=== PATIENT | female | born 1985 | race Asian ===

== ENCOUNTER 2017-04-02 10:20 | Inpatient (IN) | payer OTHER ==
[2017-04-02] MEDS: ELECTROLYTE-148 SOLN 1,000 ML IV SCH ×2 (10:50→14:30)
[2017-04-02] MEDS ORDERED: BUTORPHANOL TARTRATE 1 MG/ML VIAL IVPB ONE (10:55)
[2017-04-02] MEDS ORDERED: PROMETHAZINE HCL 25 MG/1 ML VIAL IVPUSH ONE (10:55)
[2017-04-02] MEDS ORDERED: CLINDAMYCIN 900 MG PREMIX IVPB 50 ML IVPB ONE (10:57)
[2017-04-02 11:20] LABS: BASOPHIL 0.1 % (0-2.0); EOSINOPHIL 0.2 % (0-4.5); MCH 28.7 pg (25.7-33.7); MCHC 33.4 g/dl (32.0-36.0); MEAN CELL VOLUME 85.8 fl (80-96); MEAN PLT VOLUME 9.9 fl (7.5-11.1); NEUTROPHILS 80.6 % (42.8-82.8); PLATELET COUNT 163 K/MM3 (134-434); RDW 14.7 % (11.6-15.6); WHITE BLOOD COUNT 11.3 K/mm3 (4.0-10.0)
--- NOTE | 2017-04-02 11:23 | HP ---
Past Medical History - Primary Care Physician PCP:: Cornelia Bower - Admission Chief Complaint: 31 yrs , 40.2 weeks, onset LP since 6.00AM History of Present Illness: PNC at [address] [place] [address]. 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 Weeks Gestation by Dates: 40.2 ...EDC by Dates: 03/31/17 ...EDC by Sono: 03/31/17 Heme/Onc: Yes: Anemia Infectious Disease: No: HIV, STD's Psych: No: Addictions, Anxiety, Depression Endocrine: Yes: Other (gdm diet controlled during last pregn) - Past Surgical History Past Surgical History: Yes: None Hx Myomectomy: No Hx Transabdominal Cerclage: No - Smoking History Smoking history: Never smoked - Alcohol/Substance Use Hx Alcohol Use: No History of Substance Use: reports: None - Social History ADL: Independent Home Medications - Allergies Allergies/Adverse Reactions: Allergies Allergy/AdvReac Type Severity Reaction Status Date / Time amoxicillin Allergy Severe Itching Verified 04/02/17 11:32 - Home Medications Home Medications: Ambulatory Orders Vitamins (Sjr) - 1 tab PO DAILY tablet 06/07/15 Physical Exam - Maternity Vital Signs: BP 145/84 , Pulse 105, Temp 98 Selected Entries 04/02/17 11:00 Temperature 98.0 F Pulse Rate 105 H Blood Pressure 145/84 Constitutional: Yes: Severe Distress, Obese (203 lbs) Eyes: Yes: WNL HENT: Yes: WNL, Normocephalic Neck: Yes: WNL Cardiovascular: Yes: WNL, Regular Rate and Rhythm Lungs: Clear to auscultation Breast(s): Yes: Other (not done) - Abdominal Exam/OB Fundal Height: 40 Number of Fetuses: Single Presentation: Vertex Contractions: Yes Regularity: Regular (3-4 min) Intensity: Mod/Strong Monitor Mode: External Heart Rate (range): 130-140 Heart Rate Location: [facility] Category: I Accelerations: Uniform Decelerations: None - Vaginal Exam/OB Vaginal Bleediing: Bloody Show Speculum Exam: No Dilatation (cm): 6 Effacement (%): 100 Amniotic Membrane Status: Intact Presentation: Vertex/Position (exam at 10.45 AM) Station: -1 - Physical Exam Musculoskeletal: Yes: WNL Extremities: Yes: WNL. No: Calf Tenderness Edema: Yes Integumentary: Yes: WNL Deep Tendon Reflex Grade: Normal +2 ...Motor Strength: WNL Psychiatric: Yes: WNL, Alert, Oriented - Labs Lab Results: Selected Entries 04/02/17 11:32 Weight 203 lb Laboratory Tests 04/02/17 11:10 WBC 11.3 H Hgb 12.3 D Hct 36.9 Plt Count 163 Neutrophils % 80.6 Lymphocytes % 13.7 D Laboratory Tests 04/02/17 04/02/17 11:10 11:10 INR 0.95 PTT (Actin FS) 30.1 Sodium 138 Potassium 4.1 Chloride 108 H Carbon Dioxide 23 BUN 6 L Creatinine 0.4 L D Random Glucose 69 L Calcium 8.4 L Problem List - Problems (1) Post term over 40 weeks Code(s): O48.0 - POST-TERM (2) Labor established Code(s): YQA9049 - (3) GBS (group B Streptococcus carrier), +RV culture, currently Code(s): O99.820 - STREPTOCOCCUS B [employer] COMPLICATING Assessment/Plan 31 yrs , post term pregn in labor gbs pos , allergic to Amoxcillin , rx IV Clindamycin 900 mg stadol 1 mg + phenrgan 25 mg iv stat for pain was given at 11.20 am . trial of vaginal delivery
[2017-04-02 11:43] LABS: INR 0.95 (0.82-1.09); PROTHROMBIN TIME (PATIENT) 10.4 SEC (9.98-11.88)
[2017-04-02 11:44] LABS: ANION GAP 7 (8-16); CALCIUM 8.4 mg/dL (8.5-10.1); CO2 23 mmol/L (21-32); CREATININE 0.4 mg/dL (0.55-1.02); GLUCOSE,RANDOM 69 mg/dL (74-106)
[2017-04-02 11:46] LABS: ACTIVATED PTT 30.1 SECONDS (26.9-34.4)
[2017-04-02 12:06] VITALS: BMI 17.4
--- NOTE | 2017-04-02 13:35 | PN ---
Progress Note, Labor Vaginal Exam #1 Labor Exam Date: 04/02/17 Labor Exam Time: 13:20 Heart Rate (range): 150 Dilatation: 7 Effacement (%): 90 Amniotic Membrane Status: Ruptured (AROM clear) Presentation: Vertex/Position Station: -2 (-2/-1) Remarks: fhr cat-1 uc 3-4 min c/o pain .waking up after stadol plan epidural labor analgesia Selected Entries 04/02/17 13:00 Pulse Rate 82 Blood Pressure 144/83 Vaginal Exam #2 Labor Exam Date: 04/02/17 Labor Exam Time: 02:40 Heart Rate (range): 150 Dilatation: 9 Effacement (%): 100 Amniotic Membrane Status: Ruptured Presentation: Vertex/Position Station: 0 Remarks: fhr cat-2 , variable decel down to 90 bpm ,& late decel changed to rt lat position, O2 given uc 2-3 min . 13.40 hr epidural given Selected Entries 04/02/17 14:00 Temperature 98.1 F Pulse Rate 80 Respiratory 18 Rate Blood Pressure 127/77 Vaginal Exam #3 Labor Exam Date: 04/02/17 Labor Exam Time: 16:00 Heart Rate (range): 150 Dilatation: 10 Effacement (%): 100 Amniotic Membrane Status: Ruptured Presentation: Vertex/Position Station: +2 Remarks: fhr cat-1 uc 2-3 min T 99.4 plan await for natural descent before encouraging her to push
[2017-04-02] MEDS ORDERED: FENTANYL/BUPIVACAINE/NS/PF - PCEA - 50 ML DISP.SYRIN EP SCH (13:45)
[2017-04-02 15:02] LABS: URINE APPEARANCE CLEAR; URINE BILIRUBIN NEGATIVE (NEGATIVE); URINE BLOOD NEGATIVE (NEGATIVE); URINE COLOR COLORLESS; URINE GLUCOSE (UA) NEGATIVE (NEGATIVE); URINE KETONE NEGATIVE (NEGATIVE); URINE LEUK ESTERASE NEGATIVE (NEGATIVE); URINE NITRITE NEGATIVE (NEGATIVE); URINE PROTEIN NEGATIVE (NEGATIVE); URINE UROBILINOGEN NEGATIVE mg/dL (0.2-1.0)
[2017-04-02] MEDS ORDERED: CLINDAMYCIN 600MG PREMIX IVPB 50 ML IVPB SCH (17:00)
[2017-04-02] MEDS ORDERED: METHYLERGONOVINE MALEATE 0.2 MG/1 ML AMP IM PRN (17:59)
[2017-04-02] MEDS ORDERED: BISACODYL 10 MG SUPP.RECT RC PRN (17:59)
[2017-04-02] MEDS ORDERED: BENZOCAINE 20% 57 GM BOTTLE TP PRN (17:59)
[2017-04-02] MEDS ORDERED: WITCH HAZEL 50% (TUCKS) 40 PAD/JAR PAD TP PRN (17:59)
[2017-04-02] MEDS ORDERED: BENZOCAINE 28 GM HEMORRHOIDAL OINTMENT TP PRN (17:59)
[2017-04-02] MEDS ORDERED: oxyCODONE HCL 5 MG TABLET PO PRN (17:59)
[2017-04-02] MEDS ORDERED: OXYTOCIN 20 UNITS in 0.9% NS 1,000 ML IV SCH (18:00)
[2017-04-02 18:07] LABS: ARTERIAL BLOOD GAS BASE EXCESS -3.3 meq/l (-2-2); ARTERIAL BLOOD GAS HCO3 26.5 meq/L (22-26); ARTERIAL BLOOD GAS PO2 18.5 mmHg (80-100)
[2017-04-02 18:10] LABS: ARTERIAL BLD GAS O2 SATURATION 64.3 % (90-98.9); ARTERIAL BLOOD GAS BASE EXCESS -0.9 meq/l (-2-2); ARTERIAL BLOOD GAS HCO3 24.9 meq/L (22-26); ARTERIAL BLOOD GAS pH 7.35 (7.35-7.45)
[2017-04-02 18:14] LABS: ARTERIAL BLOOD GAS PO2 28.7 mmHg (80-100)
[2017-04-02 18:16] LABS: ARTERIAL BLOOD GAS pH 7.22 (7.35-7.45)
[2017-04-02] MEDS: ACETAMINOPHEN 325 MG TABLET (FP) PO PRN (20:24)
[2017-04-02] MEDS: IBUPROFEN 600 MG TABLET (FP) PO PRN (20:24)
[2017-04-03] MEDS: IBUPROFEN 600 MG TABLET (FP) PO PRN ×3 (05:56→20:47)
[2017-04-03] MEDS: ACETAMINOPHEN 325 MG TABLET (FP) PO PRN ×4 (05:56→20:47)
[2017-04-03] MEDS: FERROUS SO4 325 MG TABLET (FP) PO SCH ×2 (07:54→17:52)
--- NOTE | 2017-04-03 08:37 | PN ---
Progress Note (short form) - Note Progress Note: ppd1 dooing well, no c/o, voids ok CBC, BMP 04/02/17 11:10 04/02/17 11:10 Last Vital Signs Temp Pulse Resp BP Pulse Ox 98.1 F 87 20 144/97 99 04/03/17 06:00 04/03/17 06:00 04/03/17 06:00 04/03/17 06:00 04/02/17 17:00 uterus firm, non tender, no cva lochia mild no calf tenderness plan ambulate, cbc
[2017-04-03 08:54] LABS: BASOPHIL 0.2 % (0-2.0); EOSINOPHIL 0.3 % (0-4.5); MCH 28.9 pg (25.7-33.7); MCHC 32.9 g/dl (32.0-36.0); MEAN CELL VOLUME 87.9 fl (80-96); MEAN PLT VOLUME 10.9 fl (7.5-11.1); PLATELET COUNT 139 K/MM3 (134-434); RDW 14.5 % (11.6-15.6); WHITE BLOOD COUNT 10.4 K/mm3 (4.0-10.0)
[2017-04-03] MEDS: PRENATAL VITAMINS W/ FOLIC ACID TABLET (FP) PO SCH (09:15)
[2017-04-03] MEDS ORDERED: DIPHTH,PERTUSS(ACELL),TET 0.5 ML DISP.SYRIN IM ONE (10:00)
--- NOTE | 2017-04-03 15:13 | PN ---
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 she received 2 ods of Iv Clindamycin Stadol + phenrgan followed by epidural was given for labor analgesia Intrapartum course uneventful
[2017-04-03] MEDS ORDERED: SENNOSIDES/DOCUSATE COMBO (SENNA PLUS) TABLET (UD) PO PRN (22:00)
[2017-04-04] MEDS: ACETAMINOPHEN 325 MG TABLET (FP) PO PRN ×2 (06:42→11:50)
[2017-04-04] MEDS: IBUPROFEN 600 MG TABLET (FP) PO PRN (06:42)
--- NOTE | 2017-04-04 07:57 | DS ---
Physical Exam-MOBILE HEAVY EQUIPMENT OPERATOR Vital Signs: Vital Signs Temperature 98.1 F 04/04/17 06:00 Pulse Rate 76 04/04/17 06:00 Respiratory Rate 20 04/04/17 06:00 Blood Pressure 125/73 04/04/17 06:00 O2 Sat by Pulse Oximetry (%) 99 04/02/17 17:00 Constitutional: Yes: Well Nourished Eyes: Yes: WNL HENT: Yes: WNL Neck: Yes: WNL Cardiovascular: Yes: WNL Respiratory: Yes: WNL Gastrointestinal: Yes: WNL ...Rectal Exam: Yes: WNL Renal/: Yes: WNL Pelvis: Yes: WNL External Genitalia: Yes: Normal ....Post : Yes: Uterus firm, Uterus non-tender, Moderate lochia rubra Breast(s): Yes: WNL (BF) Musculoskeletal: Yes: WNL Extremities: Yes: WNL. No: Calf Tenderness Edema: Yes Edema: LLE: Trace, RLE: Trace Integumentary: Yes: Tattoos Neurological: Yes: WNL, Alert, Oriented ...Motor Strength: WNL Psychiatric: Yes: WNL, Alert, Oriented Labs: CBC, BMP 04/03/17 07:30 04/02/17 11:10 Delivery - Delivery Vaginal Delivery: No Problems, Spontaneous Type of Anesthesia: Local, Epidural Episiotomy/Laceration: Midline (epi was sutured in layers with chr catgut #2/0 under local anesthesia GA exam mucosa & sphincter was intact .) EBL (cc): 400 Delivery, Single - Stages of Labor Date 1st Stage Initiatied: 04/02/17 Time 1st Stage Initiated: 06:00 Date 2nd Stage Initiated: 04/02/17 Time 2nd Stage Initiated: 16:00 Date of Delivery: 04/02/17 Time of Delivery: 17:35 Time Placenta Delivered: 17:40 Placenta: Yes: Spontaneous, Uterine Exploration - Condition of 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 she received 2 ods of Iv Clindamycin Stadol + phenrgan followed by epidural was given for labor analgesia Intrapartum course uneventful . pp course uneventful. discharge today Discharge Summary Reason For Visit: LABOR Current Active Problems GBS (group B Streptococcus carrier), +RV culture, currently (Acute) Labor established (Acute) Normal spontaneous vaginal delivery (Acute) Post term over 40 weeks (Acute) Condition: Stable - Instructions Diet, Activity, Other Instructions: Post Instructions DIET: Continue good diet high in protein, calcium, and iron rich foods. Drink at least eight (8) glasses of water daily in addition to other fluids. ___ Regular diet, Low salt Diet MEDICATIONS: Continue vitamins and iron as previously directed. Motrin and Tylenol may be taken for minor discomfort. ACTIVITY: Mild to moderate exercise may be started in two (2) weeks. Take frequent rest periods. Resume normal activity after six (6) week check up. WOUND CARE OF OPERATIVE SITE: Continue use of perineal bottle until vaginal discharge stops. Keep area clean. Shower daily. Keep abdominal wound dry. Report any drainage or redness to physician. Tub baths, tampons and douches are not permitted for [address] _ Breast feeding & or Bottle feeding BREAST CARE: (For those that are not breast feeding): If engorgement occurs: Wear tight fitting bra. Take Tylenol or Motrin for pain. Apply cold packs (ice in bags to each breast ) FAMILY PLANNING: There are many control alternatives to pursue and they should be discussed at your first office visit. You may resume sexual activity after your six (6) week check up. (Remember, breast feeding is not a contraceptive) NEXT PHYSICIAN APPOINTMENT: Be certain to call for a six (6) week appointment, unless otherwise directed. Call Clinic or got to Emergency Dept if you have any of the following: Heavy vaginal bleeding Painful urination Leg pain Unusual odor noted to vaginal bleeding High fever Red streaking noted on breast Referrals: Cornelia Bower MD [Staff Physician] - Disposition: HOME - Home Medications Comprehensive Discharge Medication List: Ambulatory Orders Vitamins (Sjr) - 1 tab PO DAILY tablet 06/07/15 Acetaminophen [Tylenol .Regular Strength -] 650 mg PO Q3H PRN #0 tablet Benzocaine [Americaine 20% [place] -] 1 spray TP PRN PRN #0 bottle 04/03/17 Ibuprofen [Motrin -] 200 mg PO Q4H PRN #0 tablet 04/03/17 Vitamins (Sjr) - 1 tab PO DAILY tablet 04/03/17
[2017-04-04] MEDS: FERROUS SO4 325 MG TABLET (FP) PO SCH (09:07)
[2017-04-04 09:33] VITALS: BP 126/41; PULSE 93; TEMP 98.5
[2017-04-04] MEDS: PRENATAL VITAMINS W/ FOLIC ACID TABLET (FP) PO SCH (10:21)
== END 2017-04-04 12:30 | disposition home or self-care (01) | DRG 560 ==
LOC: JLDR 10:20 → J3W 20:20
PROVIDERS: ADMIT Obstetrics & Gynecology; ATTEND Obstetrics & Gynecology
PROC: 10E0XZZ Delivery of Products of Conception, External Approach (ICD-10-PCS; principal; 2017-04-02)
PROC: 0W8NXZZ Division of Female Perineum, External Approach (ICD-10-PCS; 2017-04-02)
DX: O48.0 Post-term pregnancy (principal); Z22.330 Carrier of Group B streptococcus; Z3A.40 40 weeks gestation of pregnancy; Z37.0 Single live birth
CPT/HCPCS: 36415; 36600; 59409; 80048; 81003; 82803; 85025; 85610; 85730; 86593; 86850; 86900; 86901; 90715